=== PATIENT | male | born 1985 | race African-American/Black ===

== ENCOUNTER 2016-11-28 09:40 | Inpatient (IN) | payer MEDICAID ==
[~2016-11-28] VITALS: Ht 177.8 cm; Wt 76.3 kg
[2016-11-28 10:37] LABS: BASOPHIL % 0.3 % (0-2); PLATELET COUNT 256 x10^3mcL (130-400); RED CELL DISTRIBUTION WIDTH 12.1 % (11.5-14.5)
[2016-11-28 10:39] LABS: CALCIUM 8.9 mg/dL (8.5-10.1); CARBON DIOXIDE 22.7 mmol/L (21-32); CHLORIDE SERUM 106 mmol/L (98-107); CREATININE SERUM 0.9 mg/dL (0.7-1.3); GFR1 > 60 mL/min; GLUCOSE SERUM 107 mg/dL (74-106); POTASSIUM SERUM 3.8 mmol/L (3.5-5.1); SODIUM SERUM 141 mmol/L (136-145)
[2016-11-28 10:43] LABS: ALBUMIN 4.2 g/dL (3.4-5.0); ALKALINE PHOSPHATASE 68 U/L (46-116); ALT/SGPT 18 U/L (16-63); AMYLASE 61 U/L (25-115); AST/SGOT 17 U/L (15-37); BILIRUBIN TOTAL 1.04 mg/dL (0.20-1.00); LIPASE 84 IU/L (73-393); TOTAL PROTEIN, SERUM 7.3 g/dL (6.4-8.2)
[2016-11-28 14:13] VITALS: BP 141/81
[2016-11-28 14:36] VITALS: BP 141/81
[2016-11-28 14:50] LABS: CHOLESTEROL/HDL RATIO 2.2
[2016-11-28 14:52] VITALS: Ht 177.8 cm; Wt 76.3 kg
[2016-11-28 14:54] LABS: T3 TOTAL 0.89 ng/mL
[2016-11-28 15:25] LABS: FREE T4 1.11 ng/dL (0.76-1.46); FREE THYROXINE INDEX 2.8 ug/dL (1.4-4.5); T4(THYROXINE) 7.8 ug/dL (4.7-13.3)
[2016-11-28 17:01] VITALS: BP 142/77
[2016-11-28 20:39] VITALS: BP 145/81
[2016-11-28 22:04] LABS: microscopic required? YES; urine erythrocyte NEGATIVE (NEGATIVE)
[2016-11-28 22:13] LABS: AMPHETAMINE QUAL UR NONE DETECTED (NEG <=1000)
[2016-11-29 05:50] VITALS: BP 106/62
[2016-11-29 06:45] LABS: CALCIUM 8.9 mg/dL (8.5-10.1); CARBON DIOXIDE 26.1 mmol/L (21-32); CHLORIDE SERUM 106 mmol/L (98-107); CREATININE SERUM 1.1 mg/dL (0.7-1.3); GFR1 > 60 mL/min; GLUCOSE SERUM 98 mg/dL (74-106); MAGNESIUM 2.1 mg/dL (1.8-2.4); PHOSPHOROUS 3.9 mg/dL (2.5-4.9); SODIUM SERUM 142 mmol/L (136-145)
[2016-11-29 07:19] LABS: BASOPHIL % 0.2 % (0-2); PLATELET COUNT 259 x10^3mcL (130-400); RED CELL DISTRIBUTION WIDTH 11.8 % (11.5-14.5)
[2016-11-29 09:23] VITALS: BP 111/69
[2016-11-29 12:57] VITALS: BP 125/67
[2016-11-29 16:45] VITALS: BP 138/75
[2016-11-30 06:01] VITALS: BP 123/86
[2016-11-30 06:13] LABS: BASOPHIL % 0.4 % (0-2); PLATELET COUNT 228 x10^3mcL (130-400)
[2016-11-30 06:38] LABS: CALCIUM 8.7 mg/dL (8.5-10.1); CARBON DIOXIDE 22.9 mmol/L (21-32); CHLORIDE SERUM 103 mmol/L (98-107); GFR1 > 60 mL/min; GLUCOSE SERUM 110 mg/dL (74-106); MAGNESIUM 1.8 mg/dL (1.8-2.4); PHOSPHOROUS 3.1 mg/dL (2.5-4.9); SODIUM SERUM 137 mmol/L (136-145)
[2016-11-30 10:00] VITALS: BP 138/80
[2016-11-30] MEDS ORDERED: CAR1 PO (14:33)
[2016-11-30] MEDS ORDERED: NOR10T PO (14:33)
[2016-11-30] MEDS ORDERED: PROTONIX20 MG PO (14:34)
[2016-11-30] MEDS ORDERED: ZOF4 PO (14:34)
[2016-11-30 16:21] VITALS: BP 110/49
[2016-11-30 16:22] VITALS: BP 110/49
== END 2016-11-30 17:17 | disposition home or self-care (01) | DRG 241 ==
LOC: ED 09:40 → DU 13:32
PROVIDERS: Emergency Medicine; Family Medicine; Internal Medicine Gastroenterology; ADMIT Family Medicine
PROC: 0DB68ZX Excision of Stomach, Via Natural or Artificial Opening Endoscopic, Diagnostic (ICD-10-PCS; principal; 2016-11-29 10:30)
DX: K25.9 Gastric ulcer, unspecified as acute or chronic, without hemorrhage or perforation (principal); N17.0 Acute kidney failure with tubular necrosis; G92 Toxic encephalopathy; T51.0X1A Toxic effect of ethanol, accidental (unintentional), initial encounter; F10.129 Alcohol abuse with intoxication, unspecified; F12.99 Cannabis use, unspecified with unspecified cannabis-induced disorder; F17.210 Nicotine dependence, cigarettes, uncomplicated; Z87.11 Personal history of peptic ulcer disease; Z68.24 Body mass index [BMI] 24.0-24.9, adult; Y90.1 Blood alcohol level of 20-39 mg/100 ml; Y92.009 Unspecified place in unspecified non-institutional (private) residence as the place of occurrence of the external cause
CPT/HCPCS: 43235; 80307; 83880; 84439; C9113; G0480; J1200; J1610; J1630; J1885; J2250; J2310; J2405; J2550; J2765; J3010; J3490; J7030; Q0092